=== PATIENT | male | born 1995 | race Caucasian/White ===

== ENCOUNTER 2024-06-19 15:40 | Emergency (ER) | payer OTHER ==
[~2024-06-19] VITALS: Ht 177.8 cm; Wt 109.8 kg
[2024-06-19 16:01] VITALS: BP 137/91; PULSE 109; RESP 21; TEMP 98.3; O2SAT 97
[2024-06-19 18:59] VITALS: BP 118/80; PULSE 89; RESP 21; TEMP 98.3; O2SAT 97
== END 2024-06-19 19:01 | disposition home or self-care (01) ==
LOC: MED 15:40
DX: S83.91XA Sprain of unspecified site of right knee, initial encounter (principal); S13.4XXA Sprain of ligaments of cervical spine, initial encounter; S90.31XA Contusion of right foot, initial encounter; S70.01XA Contusion of right hip, initial encounter; F17.200 Nicotine dependence, unspecified, uncomplicated; V29.99XA Rider (driver) (passenger) of other motorcycle injured in unspecified traffic accident, initial encounter; Y93.55 Activity, bike riding; Y92.89 Other specified places as the place of occurrence of the external cause; Y99.8 Other external cause status
CPT/HCPCS: 72050; 73502; 73562; 73630; 99284